=== PATIENT | male | born 1945 | race Caucasian/White ===

== ENCOUNTER 2020-12-22 06:50 | Day surgery (SDC) | payer MEDICARE, OTHER ==
[~2020-12-22 06:50] MED LIST: Lactated Ringers 1,000 ML IV PRN; Sodium Chloride 0.9% 10 ML Syringe FLUSH PRN
[2020-12-22] MEDS ORDERED: Metoprolol Tartrate 5 MG/5 ML SDV IV ONE (06:51)
[2020-12-22] MEDS ORDERED: fentaNYL 100 MCG/2 ML SDV IV ONE (06:51)
[2020-12-22] MEDS ORDERED: Midazolam 1 MG/ML 2 ML SDV IV ONE (06:51)
[2020-12-22] MEDS ORDERED: acetaZOLAMIDE 500 MG Cap.ER PO ONE (09:00)
--- NOTE | 2020-12-22 10:32 | OR ---
DATE OF OPERATION: 12/22/2020 SURGEON: Deann Hilario MD PREOPERATIVE DIAGNOSES: 1. Visually significant cataract, left eye. 2. Floppy iris syndrome, left eye. POSTOPERATIVE DIAGNOSES: 1. Visually significant cataract, left eye. 2. Floppy iris syndrome, left eye. PROCEDURES PERFORMED: Complex phacoemulsification with intraocular lens placement, left eye; CPT 43812. ASSISTANTS: None. ANESTHESIA: Local with sedation. COMPLICATIONS: None. BLOOD LOSS: None. IMPLANTS: Shun Vivity [id number], 19.0 diopter lens, serial number [id number] implanted. CDE: 2.14. DESCRIPTION OF PROCEDURE: After risks and benefits were reviewed with the patient, consent was obtained in the preoperative area, and the operative eye was marked with a surgical pen. In the preoperative area, a pledget was used to dilate the pupil consisting of a mixture of phenylephrine 10%, cyclopentolate 2%, moxifloxacin 0.5%, and bupivacaine 0.75%. The patient was taken to the operating room, where a time-out was performed, and the patient was placed under monitored anesthesia care. Topical tetracaine was used for anesthesia. The operative eye was prepped and draped for ophthalmic surgery, and the microscope was brought into position and focused. A paracentesis incision was made, followed by injection of preservative-free 1% lidocaine into the anterior chamber, followed by injection of Viscoat into the anterior chamber. Due to floppy iris syndrome and poor pupillary dilation, a Malyugin ring was used to retract the pupil to 6.25 mm. A microkeratome blade was used to make a corneal limbal incision temporally. A cystotome was used to make the beginning of the capsulorrhexis, which was carried around 360 degrees in a curvilinear fashion using Utrata forceps. A Davies cannula with BSS was used to hydrodissect and hydrodelineate the nucleus. The nucleus was removed in a divide and conquer manner using phacoemulsification. Irrigation and aspiration were used to remove the remaining cortical material. Provisc was used to inflate the capsular bag, and Shun Vivity [id number], 19.5 diopter lens, serial number [id number] was injected into the capsular bag. A Sinskey hook was used to position and center the lens. The Malyugin ring was then removed from the anterior chamber and discarded. Next, irrigation and aspiration was used to remove any remaining viscoelastic and cortical material from the anterior chamber. BSS on a cannula was used to inflate the anterior chamber and hydrate the wound. The wound was checked and found to be watertight. 1 mg of Moxifloxacin was injected into the anterior chamber. Drapes were removed and the eye was cleaned. A drop of brimonidine 0.2% and a drop of TobraDex was placed. The eye was shielded, and the patient was taken to the recovery room in stable condition. /[id number] ERICK/ANGELO
[2020-12-22 14:33] VITALS: BP 130/92; PULSE 129
== END 2020-12-22 09:52 | disposition home or self-care (01) ==
LOC: FB.SDS 06:50
PROVIDERS: ATTEND Ophthalmology
DX: E11.36 Type 2 diabetes mellitus with diabetic cataract (principal); H25.13 Age-related nuclear cataract, bilateral; H40.013 Open angle with borderline findings, low risk, bilateral; H35.411 Lattice degeneration of retina, right eye; H50.52 Exophoria; H11.151 Pinguecula, right eye; H21.81 Floppy iris syndrome; I10 Essential (primary) hypertension; I48.0 Paroxysmal atrial fibrillation; E78.00 Pure hypercholesterolemia, unspecified; Z79.899 Other long term (current) drug therapy; Z98.890 Other specified postprocedural states
CPT/HCPCS: 00142-QZ; 93005; A9270-GY; J2250; J3010; J3490; J7120; V2788-GY